=== PATIENT | male | born 1950 | race Caucasian/White ===

== ENCOUNTER 2018-03-07 18:48 | Emergency (ER) | payer MEDICARE ==
[~2018-03-07] VITALS: Ht 180.3 cm; Wt 98.4 kg
[2018-03-07 18:56] VITALS: BP 150/77
== END 2018-03-07 19:53 | disposition home or self-care (01) ==
LOC: ED 19:34
DX: S63.286A Dislocation of proximal interphalangeal joint of right little finger, initial encounter (principal); Z88.8 Allergy status to other drugs, medicaments and biological substances; Z88.6 Allergy status to analgesic agent; Z88.1 Allergy status to other antibiotic agents; W01.0XXA Fall on same level from slipping, tripping and stumbling without subsequent striking against object, initial encounter; Y93.89 Activity, other specified; Y92.89 Other specified places as the place of occurrence of the external cause; Y99.8 Other external cause status
CPT/HCPCS: 26770; 29130; 99283; 99284

== ENCOUNTER 2019-01-08 14:25 | Outpatient (CLI) | payer MEDICARE ==
[2019-01-08] MEDS ORDERED: OMEP40CA42 PO (14:48)
[2019-01-08] MEDS ORDERED: ASPI-496 PO (14:48)
[2019-01-08] MEDS ORDERED: LEVO150T5 PO (14:48)
[2019-01-08] MEDS ORDERED: TAMS-11 PO (14:48)
[2019-01-08] MEDS ORDERED: METO25TA35 PO (14:48)
[2019-01-08] MEDS ORDERED: PSYL0.528 PO (14:49)
[2019-01-08 15:29] LABS: BASOPHILS # (AUTO) 0.04 x10^3/uL (0-0.1); BASOPHILS % (AUTO) 1 % (0-1); EOSINOPHILS # (AUTO) 0.17 x10^3/uL (0-0.4); EOSINOPHILS % (AUTO) 3 % (1-7); LYMPHOCYTES # (AUTO) 1.71 x10^3/uL (1-3.4); LYMPHOCYTES % (AUTO) 27 % (22-44); MD NO; MEAN CORPUSCULAR HEMOGLOBIN 31.7 pg (27.5-34.5); MEAN CORPUSCULAR HGB CONC 33.5 g/dL (33.2-36.2); MEAN CORPUSCULAR VOLUME 94.6 fL (81-97); MONOCYTES # (AUTO) 0.61 x10^3/uL (0.2-0.8); MONOCYTES % (AUTO) 9 % (2-9); NEUTROPHILS % (AUTO) 61 % (42-75); PLATELET COUNT 209 x10^3/uL (130-400); RED BLOOD COUNT 4.82 x10^6/uL (4.38-5.82)
[2019-01-08 15:34] LABS: ALBUMIN 3.7 g/dL (3.4-5.0); ANION GAP 6 mmol/L (5-15); CHLORIDE 111 mmol/L (98-107)
[2019-01-08 15:36] LABS: ALANINE AMINOTRANSFERASE 27 U/L (12-78); ALKALINE PHOSPHATASE 71 U/L (45-117); BILIRUBIN,TOTAL 0.5 mg/dL (0.2-1.0); CREATININE 1.25 mg/dL (0.7-1.3); TOTAL PROTEIN 6.7 g/dL (6.4-8.2)
== END 2019-01-08 23:59 | disposition home or self-care (01) ==
LOC: STAR 14:25
PROVIDERS: ATTEND Surgery
DX: Z01.811 Encounter for preprocedural respiratory examination (principal); K40.90 Unilateral inguinal hernia, without obstruction or gangrene, not specified as recurrent
CPT/HCPCS: 36415; 71046; 80053; 85025; 93005

== ENCOUNTER 2019-01-16 10:29 | Day surgery (SDC) | payer MEDICARE ==
[~2019-01-16] VITALS: Ht 180.3 cm; Wt 94.5 kg
[~2019-01-16 10:29] MED LIST: ASPI-496 PO; BUPIVACAINE/PF 0.5% ONE; INDOCYANINE GREEN 25 MG VIAL ONE; LEVO150T5 PO; METO25TA35 PO; OMEP40CA42 PO; PSYL0.528 PO; TAMS-11 PO
[2019-01-16 10:57] VITALS: BP 148/87
[2019-01-16] MEDS ORDERED: GABAPENTIN 300 MG CAPSULE PO ONE (11:00)
[2019-01-16] MEDS ORDERED: LACTATED RINGERS 1,000 ML IV SCH (11:00)
[2019-01-16] MEDS ORDERED: ACETAMINOPHEN 500 MG TABLET PO ONE (11:00)
[2019-01-16] MEDS ORDERED: MIDAZOLAM 1 MG/ML, 2ML ONE (11:23)
[2019-01-16] MEDS ORDERED: FENTANYL PF 250 MCG/5ML ONE (11:23)
[2019-01-16] MEDS ORDERED: GLYCOPYRROLATE 0.2MG/1ML, 5ML ONE (11:27)
[2019-01-16] MEDS ORDERED: CEFAZOLIN 1,000 MG ONE (11:27)
[2019-01-16] MEDS ORDERED: DEXAMETHASONE 4 MG/ML, 1ML ONE (11:27)
[2019-01-16] MEDS ORDERED: ONDANSETRON 2MG/ML, 2ML ONE (11:27)
[2019-01-16] MEDS ORDERED: NEOSTIGMINE 1 MG/ML, 10ML ONE (11:27)
[2019-01-16] MEDS ORDERED: PROPOFOL 10 MG/ML, 20ML ONE (11:27)
[2019-01-16] MEDS ORDERED: ROCURONIUM 10MG/ML,5ML ONE (11:27)
[2019-01-16] MEDS ORDERED: OXYcodone 5 MG/5 ML ORAL.SOL UDC PO PRN (14:30)
[2019-01-16] MEDS ORDERED: PROMETHAZINE 25 MG/ML, 1ML IV PRN (14:30)
[2019-01-16] MEDS ORDERED: hydrALAzine 20 MG/ML, 1ML IV PRN (14:30)
[2019-01-16] MEDS ORDERED: HYDROmorphone 2 MG/ML, 1ML IVPush PRN (14:30)
[2019-01-16] MEDS ORDERED: FENTANYL PF 100 MCG/2ML IV PRN (14:30)
[2019-01-16] MEDS ORDERED: MORPHINE SULFATE 4 MG/ML, 1ML IVPush PRN (14:30)
[2019-01-16] MEDS ORDERED: HALOPERIDOL 5 MG/ML IV PRN (14:30)
[2019-01-16] MEDS ORDERED: MEPERIDINE/PF 25MG/ML,1ML IVPush PRN (14:30)
[2019-01-16] MEDS ORDERED: LABETALOL 5MG/ML, 20ML IV PRN (14:30)
[2019-01-16] MEDS ORDERED: KETOROLAC 30 MG/1 ML ONE (15:14)
== END 2019-01-16 17:45 | disposition home or self-care (01) ==
LOC: OUT 10:29
PROVIDERS: ATTEND Surgery
DX: K40.90 Unilateral inguinal hernia, without obstruction or gangrene, not specified as recurrent (principal); N40.0 Benign prostatic hyperplasia without lower urinary tract symptoms; K21.9 Gastro-esophageal reflux disease without esophagitis; I10 Essential (primary) hypertension; E03.9 Hypothyroidism, unspecified; Z79.82 Long term (current) use of aspirin; Z79.890 Hormone replacement therapy; Z79.899 Other long term (current) drug therapy; Z88.8 Allergy status to other drugs, medicaments and biological substances; Z98.890 Other specified postprocedural states; Z82.49 Family history of ischemic heart disease and other diseases of the circulatory system
CPT/HCPCS: 49650; C1781; J0690; J1100; J1885; J2250; J2405; J2704; J2710; J3010; J7120

== ENCOUNTER 2020-01-18 03:23 | Emergency (ER) | payer MEDICARE ==
[~2020-01-18] VITALS: Ht 180.3 cm; Wt 94.0 kg
[~2020-01-18 03:23] MED LIST changes: -BUPIVACAINE/PF 0.5% ONE; -INDOCYANINE GREEN 25 MG VIAL ONE
[2020-01-18 03:27] VITALS: BP 138/87
[2020-01-18] MEDS ORDERED: SODIUM CHLORIDE FLUSH 10ML SYR IVF ONE (04:00)
[2020-01-18] MEDS ORDERED: KETOROLAC 30 MG/1 ML IVPush ONE (04:30)
[2020-01-18 04:32] LABS: BASOPHILS % (AUTO) 0 % (0-1); EOSINOPHILS % (AUTO) 1 % (1-7); LYMPHOCYTES % (AUTO) 10 % (22-44); MEAN CORPUSCULAR HEMOGLOBIN 31.4 pg (27.5-34.5); MEAN CORPUSCULAR HGB CONC 34.2 g/dL (33.2-36.2); MEAN PLATELET VOLUME 8.1 fL (7.4-10.4); MONOCYTES % (AUTO) 4 % (2-9); NEUTROPHILS % (AUTO) 86 % (42-75); PLATELET COUNT 171 x10^3/uL (130-400); RED BLOOD COUNT 4.64 x10^6/uL (4.38-5.82); RED CELL DISTRIBUTION WIDTH 12.5 % (9.4-14.8)
[2020-01-18] MEDS ORDERED: KETOROLAC 30 MG/1 ML ONE (04:37)
[2020-01-18 04:42] LABS: ALBUMIN 3.7 g/dL (3.4-5.0); ANION GAP 1 mmol/L (5-15); CALCIUM 9.2 mg/dL (8.5-10.1); CHLORIDE 111 mmol/L (98-107)
[2020-01-18 04:43] LABS: MICROSCOPIC INDICATED
[2020-01-18 04:45] LABS: ALANINE AMINOTRANSFERASE 17 U/L (12-78); ALKALINE PHOSPHATASE 66 U/L (45-117); BILIRUBIN,TOTAL 0.7 mg/dL (0.2-1.0); CREATININE 1.07 mg/dL (0.7-1.3); TOTAL PROTEIN 6.7 g/dL (6.4-8.2)
[2020-01-18 04:48] LABS: MD NO
[2020-01-18] MEDS ORDERED: OXYcodone/APAP 10/325MG TABLET ONE (05:34)
[2020-01-18] MEDS ORDERED: ONDANSETRON ODT 4 MG ONE (05:34)
[2020-01-18] MEDS ORDERED: OXYcodone/APAP 5/325MG TABLET PO ONE (06:00)
[2020-01-18] MEDS ORDERED: ONDANSETRON ODT 4 MG PO ONE (06:00)
== END 2020-01-18 05:43 | disposition home or self-care (01) ==
LOC: ED 05:10
DX: N20.1 Calculus of ureter (principal); R31.9 Hematuria, unspecified
CPT/HCPCS: 36415; 74176; 80053; 81001; 85025; 87086; 96374; 99284; J1885; Q0162